=== PATIENT | female | born 1985 | race Caucasian/White ===

== ENCOUNTER 2016-10-13 08:44 | Emergency (ER) | payer MEDICARE, OTHER ==
[2016-10-13] MEDS ORDERED: NORMAL SALINE 1,000 ML IV ONE (08:58)
[2016-10-13] MEDS ORDERED: PROMETHAZINE HCL 25 MG in DEXTROSE 5 % IN WATER 50 ML IV ONE ×2 (08:58)
[2016-10-13] MEDS ORDERED: DICYCLOMINE HCL 10 MG/ML AMPUL IM ONE ×2 (08:58→09:06)
--- NOTE | 2016-10-13 09:03 | ERNOTE ---
Medical Problem HPI - Narrative Date of Service: 10/13/16 - General Chief Complaint: Nausea/Vomiting Time Seen by Provider: 10/13/16 08:55 Source: patient Exam Limitations: no limitations - Immun/Allergies/Home Medications Immunizations: IMMUNIZATION HX Immunizations Up to Date No History of Influenza Vaccine No Hx Pneumococcal Vaccination No Allergies/Adverse Reactions: Allergies Penicillins Allergy (Verified 10/13/16 08:52) morphine Adverse Reaction (Verified 10/13/16 08:52) Home Medications: HOME MEDICATIONS Dicyclomine HCl [Bentyl] 10 mg PO TID PRN #10 capsule 10/13/16 [Last Taken Unknown] Mirtazapine [Mirtazapine (Remeron)] 15 mg PO DAILY 10/13/16 [Last Taken Unknown] Promethazine HCl [Phenergan] 25 mg PO TID PRN #12 tablet 10/13/16 [Last Taken Unknown] - History of Present History Narrative: Patient presents to the ED for vomiting and diarrhea. She relates she felt nauseated last night. Today vomiting, she relates large amounts, no blood. Abdominal cramping starting after vomiting, upper abdomen and now 2 episodes of watery non-bloody diarrhea. No fever. Son sick at home. No CP or SOB. Nothing makes this better or worse. No recent ABx. No bad food exposures she knows of. Timing: constant Severity: moderate Modifying Factors - (Improves): Present: other - nothing Modifying Factors - (Worsens): Present: other - nothign Review of Systems - Review of Systems Constitutional: Absent: fever EYE: Present: no symptoms reported ENT: Present: no symptoms reported Respiratory: Absent: shortness of breath Cardiology: Absent: chest pain Gastrointestinal/Abdominal: Present: See HPI Genitourinary: Absent: dysuria Musculoskeletal: Present: no symptoms reported Skin: Absent: rash Neurological: Absent: weakness - Patient's Past Medical History Patient History - Medical: No pertinent hx Patient History - Cardiac/Respiratory: No pertinent hx Patient History - Cancer: No Hx of Cancer Patient History - Surgical Procedures: Cholecystectomy - Social History Living Situations: home - Immunizations Immunizations Up to Date: No Hx Pneumococcal Vaccination: No History of Influenza Vaccine: No Physical Exam - Physical Exam General Appearance: Present: alert, no apparent distress Eye Exam: Normal inspection: bilateral, PERRL: bilateral Ears, Nose, Throat: Present: normal ENT inspection Neck: Present: normal inspection Respiratory: Present: no respiratory distress, no accessory muscle use, lungs clear Cardiovascular/Chest: Present: regular rate, rhythm Gastrointestinal/Abdominal: Present: normal bowel sounds, nondistended, soft, other - mild epigastric tenderness to deep palpation. No guarding or rebound. No peritoneal signs. Back Exam: Absent: CVA tenderness (R), CVA tenderness (L) Extremity Exam: Present: normal inspection Neurological Exam: Present: alert, normal mood/affect, no motor/sensory deficits. Absent: motor weakness Skin Exam: Absent: skin rash ED Progress - Results and Orders Patient's Lab Results:: I have reviewed the patient's lab results. - Vital Signs Patient's Vital Signs:: I have reviewed the patient's vital signs. Vital Signs: Vital Signs 10/13/16 10/13/16 08:45 08:48 Temperature 36.1 C L Pulse Rate 94 Respiratory 12 Rate Blood Pressure 110/66 95/63 O2 Sat by Pulse 99 Oximetry - Progress/Reassessment Chief Complaint: Nausea/Vomiting Progress Note-Subjective: 10/13/16 11:55 No further vomiting. Labs reviewed. She has only very mild upper abdominal tendenress. I do not feel imaging indicated. She feels like going home. Clinically gastroenteritis. I discussed warning signs and reasons to return as well as the need for close f/u. Departure - Departure Clinical Impression: Vomiting, Diarrhea, Abdominal cramping Disposition: Home self-care Condition: Stable Instructions: Rehydration, Adult Additional Instructions: Rest. Fluids. Follow-up with your doctor in 3 days for a re-check. Return for fever, vomiting, increased pain or if your condition worsens or changes in any way. Prescriptions: Dicyclomine HCl [Bentyl] 10 mg PO TID PRN #10 capsule PRN Reason: Pain Promethazine HCl [Phenergan] 25 mg PO TID PRN #12 tablet PRN Reason: Vomiting
--- OUTSIDE RECORDS SUMMARY | 2016-10-13 09:08 | XMS REPORT | Summary of Care ---
:1985 Author Organization [facility] Address [address] [place] [id number] Care Team Providers Name Role Phone Meghann Fink Primary Care Physician Encounter Date(s): 02/08/16 - 02/10/[address] [id number] Final: Anemia of the puerperium Final: Alkalosis Final: Acute posthemorrhagic anemia Final: Urinary tract infection following delivery, unspecified Final: Other complications of the puerperium, not elsewhere classified Final: Other chest pain Discharge Diagnosis: Symptomatic anemia Discharge Disposition: 01 Discharged to Home or Self Care Attending Physician: Amarjit Rubin MD Admitting Physician: Amarjit Rubin MD Vital Signs Most recent to oldest 1 2 3 [Reference Range]: Temperature Temporal Artery 37.2 DegC 37.2 DegC 36.9 DegC [36-38 DegC] (02/10/16 11:43 AM) (02/10/16 7:38 AM) (02/10/16 3:45 AM) Heart Rate Monitored [60-100 96 bpm 74 bpm 72 bpm bpm] (02/10/16 11:43 AM) (02/10/16 8:15 AM) (02/10/16 7:38 AM) Respiratory Rate [12-20 20 br/min 18 br/min 16 br/min br/min] (02/10/16 11:43 AM) (02/10/16 8:15 AM) (02/10/16 7:38 AM) SpO2 100 % 94 % 99 % (02/10/16 11:43 AM) (02/10/16 7:38 AM) (02/10/16 3:45 AM) SpO2 Location Left hand Left hand Right hand (02/10/16 11:43 AM) (02/10/16 7:38 AM) (02/10/16 3:45 AM) Systolic Blood Pressure 103 115 112 [100-120] (02/09/16 12:30 AM) (02/08/16 11:41 PM) (02/08/16 10:30 PM) Diastolic Blood Pressure 64 70 68 [60-80] (02/09/16 12:30 AM) (02/08/16 11:41 PM) (02/08/16 10:30 PM) Blood Pressure [90-130/60-90 105/78mmHg 112/78mmHg 122/70mmHg mmHg] (02/10/16 11:43 AM) (02/10/16 7:38 AM) (02/10/16 3:45 AM) Mean Arterial Pressure Monitor 74 mmHg 82 mmHg 84 mmHg Measure (02/09/16 1:00 PM) (02/09/16 12:00 PM) (02/09/16 11:49 AM) Blood Pressure Location Left arm Left arm Right arm (02/10/16 11:43 AM) (02/10/16 7:38 AM) (02/10/16 3:45 AM) Most recent to oldest [Reference 1 2 3 Range]: Height/Length Measured 158 cm (02/08/16 6:31 PM) Weight Dosing 77.3 kg 77.50 kg1 (02/08/16 6:31 PM) (02/08/16 2:04 PM) Weight Measured 69.2 kg 72.7 kg 77.3 kg (02/10/16 7:46 AM) (02/09/16 4:10 AM) (02/08/16 6:31 PM) BSA Measured 1.79 m2 (02/08/16 6:31 PM) Body Mass Index Measured 27.72 kg/m2 29.12 kg/m2 30.96 kg/m2 (02/10/16 7:46 AM) (02/09/16 4:11 AM) (02/08/16 6:31 PM) 1Result Comment: This result was because the dosing weight was either not entered or it is>30 days old. This result is based off: Weight Measured February 08, 2016 14:00:00 CDT by Iram Llanos Problem List Condition Effective Dates Status Health Status Informant Symptomatic anemia(Confirmed) Active Asthma(Confirmed) Active (Confirmed) 05/03/15 - 02/01/16 Resolved (Confirmed) 12/28/08 - 09/13/09 Resolved (Confirmed) 06/20/10 - 03/13/11 Resolved (Confirmed) 10/11/13 - 07/22/14 Resolved Allergies, Adverse Reactions, Alerts Substance Reaction Severity Status morphine1 back spasms Active penicillin upset stomache Active 1pt reports it gave her back spasms but she is not allergic. Medications ciprofloxacin 250 mg oral tablet 1 tab(s), Oral, BID, # 6 tab(s), 0 Refill(s), Start Date: 02/10/16 13:22:00 CDT Start Date: 02/10/16 Stop Date: 02/14/16 Status: DiscontinuedColace 100 mg oral capsule 1 cap(s), Oral, Daily, PRN for constipation, Start Date: 02/08/16 14:54:00 CDT Start Date: 02/08/16 Status: Orderedferrous gluconate 324 mg (38 mg elemental iron) oral tablet 1 tab(s), Oral, BID, # 60 tab(s), 0 Refill(s), Start Date: 02/10/16 13:22:00 CDT Start Date: 02/10/16 Status: Orderedibuprofen 800 mg oral tablet TK 1 T PO Q 8 H PRN P Special Instructions: TK 1 T PO Q 8 H PRN P Start Date: 02/08/16 Stop Date: 02/10/16 Status: DiscontinuedMiraLax oral powder for reconstitution 17 gm=, Oral, Daily, dissolve in water before taking, # 255 gm, 1 Refill(s), Start Date: 02/14/16 11:05:00 CDT, [facility]: [facility] [place] [id number] Special Instructions: dissolve in water before taking Start Date: 02/14/16 Stop Date: 03/05/16 Status: OrderedoxyCODONE-acetaminophen 5 mg-325 mg oral tablet TK 1 T PO Q 4 H PRN P. DO NOT EXCEED 4000MG OF ACETAMINOPHEN PER 24 HOURS Special Instructions: TK 1 T PO Q 4 H PRN P. 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 Start Date: 08/07/14 Stop Date: 08/10/14 Status: Completed Results Patient Viewable Results Most recent to oldest [Reference 1 2 3 Range]: Patient Temp 37.0 DegC *NA* (02/09/16 10:59 AM) pH Art [7.35-7.45] 7.51 *HI* (02/09/16 10:59 AM) pCO2 Art [35-45 mmHg] 41 mmHg (02/09/16 10:59 AM) pO2 Art [75-90 mmHg] 72 mmHg1 *LOW* (02/09/16 10:59 AM) Totl CO2 Art [23-30 mmol/L] 34 mmol/L *HI* (02/09/16 10:59 AM) HCO3 Art [21-28 mEq/L] 32 mEq/L *HI* (02/09/16 10:59 AM) Base Excess Art 8.8 mmol/L *NA* (02/09/16 10:59 AM) O2 % Sat Art (m) [95-98 %] 97 % (02/09/16 10:59 AM) WBC [4.8-10.8 thou/mm3] 7.4 thou/mm3 6.9 thou/mm3 6.2 thou/mm3 (02/10/16 5:17 AM) (02/09/16 4:04 AM) (02/08/16 2:32 PM) RBC [4.20-5.40 Mil/mm3] 3.26 Mil/mm3 3.15 Mil/mm3 3.17 Mil/mm3 *LOW* *LOW* *LOW* (02/10/16 5:17 AM) (02/09/16 9:57 PM) (02/09/16 3:53 PM) Hgb [12.0-16.0 g/dL] 9.0 g/dL 8.5 g/dL 8.8 g/dL *LOW* *LOW* *LOW* (02/10/16 5:17 AM) (02/09/16 9:57 PM) (02/09/16 3:53 PM) Hct [37.0-47.0 %] 27.8 % 26.9 % 26.9 % *LOW* *LOW* *LOW* (02/10/16 5:17 AM) (02/09/16 9:57 PM) (02/09/16 3:53 PM) MCV [80.0-94.0 fL] 85.3 fL 85.4 fL 84.9 fL (02/10/16 5:17 AM) (02/09/16 9:57 PM) (02/09/16 3:53 PM) MCH [25.0-38.0 pg/cell] 27.6 pg/cell 27.0 pg/cell 27.8 pg/cell (02/10/16 5:17 AM) (02/09/16 9:57 PM) (02/09/16 3:53 PM) MCHC [31.0-37.0 g/dL] 32.4 g/dL 31.6 g/dL 32.7 g/dL (02/10/16 5:17 AM) (02/09/16 9:57 PM) (02/09/16 3:53 PM) RDW [1.0-48.0 fL] 48.4 fL 49.2 fL 48.8 fL *HI* *HI* *HI* (02/10/16 5:17 AM) (02/09/16 9:57 PM) (02/09/16 3:53 PM) Platelet [130-400 thou/mm3] 298 thou/mm3 234 thou/mm3 231 thou/mm3 (02/10/16 5:17 AM) (02/09/16 4:04 AM) (02/08/16 2:32 PM) Platelet Morphology [Normal] Normal (02/08/16 2:32 PM) Platelet Estimate [Normal] Normal (02/08/16 2:32 PM) Neutrophils % Auto [50.0-75.0 %] 59.2 % (02/09/16 4:04 AM) Immature Granulocyte Auto 5.9 % [0.1-2.0 %] *HI* (02/09/16 4:04 AM) Lymphocytes % Auto [15.0-41.0 %] 24.5 % (02/09/16 4:04 AM) Monocytes % Auto [2.0-10.0 %] 8.4 % (02/09/16 4:04 AM) Eosinophils % Auto [0.0-6.0 %] 1.6 % (02/09/16 4:04 AM) Basophil % Auto [0.0-1.0 %] 0.4 % (02/09/16 4:04 AM) Neutrophils Absolute [1.5-5.9 4.1 thou/mm3 thou/mm3] (02/09/16 4:04 AM) Immature Gran Absolute [0.01-0.03 0.41 thou/mm3 thou/mm3] *HI* (02/09/16 4:04 AM) Lymphocytes Absolute [1.5-4.0 1.7 thou/mm3 thou/mm3] (02/09/16 4:04 AM) Monocytes Absolute [0.0-0.9 0.6 thou/mm3 thou/mm3] (02/09/16 4:04 AM) Eosinophil Absolute [0.0-0.7 0.1 thou/mm3 thou/mm3] (02/09/16 4:04 AM) Basophil Absolute [0.0-0.2 0.0 thou/mm3 thou/mm3] (02/09/16 4:04 AM) Neutrophils (Manual) [50-75 %] 77 % *HI* (02/08/16 2:32 PM) Band (Manual) [0-10 %] 2 % (02/08/16 2:32 PM) Lymphocytes (Manual) [15-41 %] 14 % *LOW* (02/08/16 2:32 PM) Atypical Lymphocyte [0-7 %] 1 % (02/08/16 2:32 PM) Monocytes (Manual) [0-10 %] 1 % (02/08/16 2:32 PM) Eosinophil (Manual) [0-6 %] 1 % (02/08/16 2:32 PM) Basophil (Manual) [0-1 %] 1 % (02/08/16 2:32 PM) Metamyeloctyes [0-0 %] 3 % *HI* (02/08/16 2:32 PM) WBC Morphology [Normal] Normal (02/08/16 2:32 PM) RBC Morphology [Normal] Abnormal *ABN* (02/08/16 2:32 PM) Anisocytosis 1+ *ABN* (02/08/16 2:32 PM) Polychromasia 2+ *ABN* (02/08/16 2:32 PM) Hypochromasia 1+ *ABN* (02/08/16 2:32 PM) Absolute Neutrophil Count 4.9 thou/mm3 [1.5-5.9 thou/mm3] (02/08/16 2:32 PM) Sed Rate [0-20 mm/hr] 81 mm/hr *HI* (02/09/16 4:04 AM) Adjusted Reticulocyte [0.5-1.5 %] 2.0 % *HI* (02/08/16 6:07 PM) INR [0.9-1.1 INR] 1.0 INR (02/08/16 2:32 PM) PTT [22.7-35.2 seconds] 34.8 seconds (02/08/16 2:32 PM) D-Dimer [0.00-0.49 mcgFEU/mL] 4.07 mcgFEU/mL2 *HI* (02/08/16 2:32 PM) Sodium Lvl [135-144 mEq/L] 140 mEq/L 143 mEq/L 142 mEq/L (02/10/16 5:17 AM) (02/09/16 4:04 AM) (02/08/16 2:32 PM) Potassium Lvl [3.3-4.8 mEq/L] 4.4 mEq/L 3.7 mEq/L 4.2 mEq/L (02/10/16 5:17 AM) (02/09/16 4:04 AM) (02/08/16 2:32 PM) Chloride Lvl [98-107 mEq/L] 101 mEq/L 103 mEq/L 106 mEq/L (02/10/16 5:17 AM) (02/09/16 4:04 AM) (02/08/16 2:32 PM) Bicarbonate Lvl [22-30 mmol/L] 27 mmol/L 30 mmol/L 25 mmol/L (02/10/16:17 AM) (02/09/16 4:04 AM) (02/08/16 2:32 PM) Anion Gap [10.0-20.0] 16.4 13.7 15.2 (02/10/16 5:17 AM) (02/09/16 4:04 AM) (02/08/16 2:32 PM) Glucose Lvl [70-108 mg/dL] 76 mg/dL 79 mg/dL 94 mg/dL (02/10/16 5:17 AM) (02/09/16 4:04 AM) (02/08/16 2:32 PM) BUN [7-21 mg/dL] 11 mg/dL 15 mg/dL 19 mg/dL (02/10/16:17 AM) (02/09/16 4:04 AM) (02/08/16 2:32 PM) Creatinine Lvl [0.50-1.20 mg/dL] 0.68 mg/dL 0.63 mg/dL 0.68 mg/dL (02/10/16 5:17 AM) (02/09/16 4:04 AM) (02/08/16 2:32 PM) BUN/Creat Ratio 16.2 23.8 27.9 *NA* *NA* *NA* (02/10/16:17 AM) (02/09/16 4:04 AM) (02/08/16 2:32 PM) eGFR AA [>=60] >60 >60 >60 (02/10/16:17 AM) (02/09/16 4:04 AM) (02/08/16 2:32 PM) eGFR ARIELLA [>=60] >60 >60 >60 (02/10/16:17 AM) (02/09/16 4:04 AM) (02/08/16 2:32 PM) Calcium Lvl [8.6-10.2 mg/dL] 8.3 mg/dL 8.1 mg/dL 8.1 mg/dL *LOW* *LOW* *LOW* (02/10/16 5:17 AM) (02/09/16 4:04 AM) (02/08/16 2:32 PM) Total Protein [6.4-8.3 g/dL] 5.3 g/dL *LOW* (02/08/16 2:32 PM) Albumin Lvl [3.5-5.2 g/dL] 2.5 g/dL *LOW* (02/08/16 2:32 PM) Globulin 2.8 *NA* (02/08/16 2:32 PM) A/G Ratio [0.9-1.8] 0.9 (02/08/16 2:32 PM) Bilirubin Total [0.1-1.0 mg/dL] 0.1 mg/dL (02/08/16 2:32 PM) Alkaline Phosphatase [39-129 123 unit/L unit/L] (02/08/16 2:32 PM) AST [0-39 unit/L] 12 unit/L (02/08/16 2:32 PM) ALT [0-40 unit/L] 17 unit/L (02/08/16 2:32 PM) LDH [94-250 unit/L] 231 unit/L (02/08/16 2:32 PM) FE [50-170 mcg/dL] 33 mcg/dL *LOW* (02/08/16 2:32 PM) Iron Binding Capacity, Total 305 mcg/dL [228-428 mcg/dL] (02/08/16 2:32 PM) % Iron Saturation [20-50 %] 11 % *LOW* (02/08/16 2:32 PM) B-type Natriuretic Peptide [0-99 394 pg/mL pg/mL] *HI* (02/08/16 2:32 PM) Troponin-I [0.00-0.04 ng/mL] <0.01 ng/mL <0.01 ng/mL <0.01 ng/mL (02/09/16 9:57 PM) (02/09/16 3:53 PM) (02/09/16 9:51 AM) Ferritin Lvl [10-291 ng/mL] 41 ng/mL (02/08/16 6:07 PM) Estimated Creatinine Clearance 115.93 mL/min 125.13 mL/min 115.93 mL/min (02/10/16 6:03 AM) (02/09/16 4:31 AM) (02/08/16 6:43 PM) UA Color LT YELLOW *NA* (02/08/16 7:41 PM) Urine Clarity [Clear] Clear (02/08/16 7:41 PM) Specific [place] [1.001-1.020] 1.043 *HI* (02/08/16 7:41 PM) Urine pH [5.0-7.0] 6.0 (02/08/16 7:41 PM) Ketones [Negative] Negative (02/08/16 7:41 PM) Bilirubin [Negative] Negative (02/08/16 7:41 PM) Urine Protein [Negative] Trace *ABN* (02/08/16 7:41 PM) Glucose [Negative] Negative (02/08/16 7:41 PM) Urine HGB [Negative] Trace *ABN* (02/08/16 7:41 PM) Urobilinogen [< 2.0 mg/dL] <2.0 *NA* (02/08/16 7:41 PM) Nitrite [Negative] Positive *ABN* (02/08/16 7:41 PM) Leuk Esterase [Negative] 3+ *ABN* (02/08/16 7:41 PM) Urine WBC [0-5] >50 *ABN* (02/08/16 7:41 PM) Urine RBC [0-2] 3-10 *ABN* (02/08/16 7:41 PM) Squamous Epi [0-5] None Seen (02/08/16 7:41 PM) Bacteria [None Seen] 4+ *ABN* (02/08/16 7:41 PM) Mucus [None Seen] Trace *NA* (02/08/16 7:41 PM) ABO/Rh A POS *Unknown* (02/08/16 6:07 PM) Antibody Screen Negative ABSC (02/08/16 6:07 PM) 1Result Comment: patient on room [id number] Comment: Abnormal D-Dimer test results (> 0.49 ug FEU/mL) preclude ruling-out deep venous thrombosis/pulmonary embolism.Microbiology Reports TEST:MRSA Screen STATUS:Auth (Verified) BODY SITE: SOURCE:Nares COLLECTED DATE/TIME:02/08/16 8:17 PMFINAL REPORTNegative for MRSA by PCRTEST :Urine Culture STATUS:Auth (Verified) BODY SITE: SOURCE:Urine COLLECTED DATE/TIME:02/08/16 5:26 PMFINAL REPORT>100,000 cfu/ml Escherichia coli ORGANISM:Escherichia coli Immunizations No data available for this section Procedures Procedure Date Related Diagnosis Body Site Bilateral tubal ligation 02/01/16 section 02/01/16 Laparoscopic cholecystectomy 04/02/11 Tooth extraction, multiple Social History No data available for this section Assessment and Plan No data available for this section
--- OUTSIDE RECORDS SUMMARY | 2016-10-13 09:08 | XMS REPORT | Continuity of Care Document ---
:1985 Author Organization [facility] ([facility]) Address [address] [place] [address] Phone [phone] Care Team Providers Name Role Phone Shutters, Jodie Davis Primary Care Provider [phone] Source Comments This disclosure is being made pursuant to the Care Everywhere program, applicable federal and state laws, and may not contain all informaitonavailable regarding this patient.[facility] ([facility]) Active Allergies and Adverse Reactions Allergen Noted Date Severity Reactions Comments Morphine 04/09/2013 Rash Penicillins 02/24/2009 Stomach Pain Upset stomach Current Medications Prescription Sig. Disp. Refills Start Date End Date Status ranitidine 150 mg Take 1 tablet 60 tablet 11 01/24/2016 Active tablet (150 mg total) by mouth 2 times daily. docusate (COLACE) 100 Take 1 capsule 60 capsule 3 02/04/2016 Active mg capsule (100 mg total) by mouth 2 times daily. ibuprofen 800 mg Take 1 tablet 90 tablet 3 02/04/2016 Active tablet (800 mg total) by mouth every 8 hours as needed for Pain. FERROUS FUMARATE (IRON Active PO) mirtazapine 15 mg Take 1 tablet (15 30 tablet 2 08/07/2016 Active tablet mg total) by mouth at bedtime. Active Problems Problem Noted Date Acute posthemorrhagic anemia 02/03/2016 Transfusion of packed red blood cells 02/03/2016 Poor social situation 01/25/2016 Overview: FABIO works nights and has fallen asleep twice while driving her to OB appointments (they live in [place]). At 37 weeks her transmission went out of her care. At 38 weeks they lost their home and started living in a tent in her [id number] back yard. During visits patient yells frequently at her children. FODomonique gets laid off from work every year and is getting close to the time to getting laid off. Needs to see health care social worker prior to d/c home. Indication for care or intervention related to labor and delivery 01/10/2016 Vaginal yeast infection 01/10/2016 Glucose intolerance (impaired glucose tolerance) 11/30/2015 Overview: Elevated 1 hour, 3 hr GTT NML Musculoskeletal pain 11/16/2015 Overview: Low back, hips, upper legs. Rx given for flexeril. Referral placed to PT 2015. Supervision of normal 07/01/2015 Overview: dated by 7 wk ultrasound Overweight 07/01/2015 Overview: BMI=29 at NOB Insomnia 06/16/2014 Psychiatric illness 03/06/2013 Overview: Phenomenological History: (onset and course of illness include symptoms description and hospitalizations; For substance use disorders include age of 1st use, last use, amount and frequency, syndrome of dependence, withdrawal symptoms, treatment, periods of sobriety) Patient has never seen a psychiatrist. No history of psychiatric admissions. She has a history of ADHD and mild MR. Treatment history: Celexa about 1 year for depression: caused issues with insomnia Amitriptyline: helpful for headaches, depression, sleep. (stopped when found out she was ) History of suicide attempts: None History of self-harm behavior: None History of violence: None Major depressive disorder, recurrent episode, mild 12/12/2012 Overview: Last seen in [facility] in 04/2015. Was taking nortriptyline and melatonin prior to Last Assessment & Plan: GERD (gastroesophageal reflux disease) 11/30/2011 Overview: Given Rx for ranitidine Asthma 11/30/2011 Attention Deficit Disorder with Hyperactivity- no meds 05/21/2002 Mild intellectual disabilities 05/21/2002 Resolved Problems Problem Noted Date Resolved Date Supervision of normal in third trimester 11/16/2015 11/30/2015 Mirena IUD placed 12/25/2013 02/03/2014 07/01/2015 Overview: Problem visit for dyspareunia and pelvic pain 09/01/14. Strings checked, treated for BV, Mirena left in place. Contraceptive management 09/01/2013 02/03/2014 Overview: Using Depo for control. C/o breakthrough bleeding and prescribed Loestrin pills for management. 09/25: Continues to have bleeding. See phone note. Offered SAS DEVELOPER ANALYST u/s with appt to discuss contraceptive plans. 10/05: SAS DEVELOPER ANALYST ultrasound and HCG rules out retained POC, though suggestive of adenomyosis. Pt will continue on Depo. Anemia, antepartum(648.23) 04/16/2013 07/01/2015 Overview: 04/16/2013 HCT: 29. Fe recommended 05/18 Supervision of normal 12/12/2012 08/31/2013 Abdominal pain complicating 12/10/2012 09/01/2013 Overview: IUP c/w 8 6/7 weeks noted on ultrasound 12/10/12. R/O UTI. Constipation. Most Recent Encounters Date Type Specialty Providers Description 09/19/2016 Telephone Psychiatry Gabriella Ritchie MD 08/09/2016 Telephone Gynecology Abbey Holly MD Chief Comp: Vaginal Bleeding 08/07/2016 Office Visit Women's Health Clayton Hermosillo MD Dx: Major depressive Gabriella Ritchie MD disorder, recurrent episode, mild (Primary Dx) Immunizations Name Dates Previously Given Next Due DTP 11/29/1995,02/17/1985 Hepatitis B, unspecified 12/01/1996,06/30/1996,04/28/1996 Influenza 06/10/2009 Influenza, PF 06/23/2012,08/07/2010 Influenza, quadrivalent PF 06/21/2016,06/24/2015,06/11/2013 MMR 02/04/2016,07/24/2013,09/15/2009,04/28/1996,12/03 Novel Influenza H1N1 07/08/2009 Polio, unspecified 08/21/1996,04/28/1996,11/29/1995 Td, adult unspecified 08/21/1996 Tdap 11/18/2015,07/03/2013,11/30/2011 Varicella 04/01/1998 Social History Tobacco Use Types Packs/Day Years Used Date Never Smoker Smokeless Tobacco: Never Used Tobacco Cessation:Counseling Given: Yes Comments: Alcohol Use Drinks/Week oz/Week Comments Yes occasionally none since 2 months Last Filed Vital Signs Vital Sign Reading Time Taken Blood Pressure 99/66 06/21/2016 10:52 AM CDT Pulse 86 06/21/2016 10:52 AM CDT Temperature 36.5 C (97.7 F) 06/21/2016 10:52 AM CDT Respiratory Rate 16 02/04/2016 8:30 AM CDT Height 1.57 m (5' 1.81") 09/15/2015 3:52 PM RETURNS PROCESSOR Weight 67 kg (147 lb 11.3 oz) 06/21/2016 10:52 AM CDT Body Mass Index 27.18 06/21/2016 10:52 AM CDT Oxygen Saturation 98% 02/04/2016 8:30 AM CDT Plan of Care Patient Goal Type Goal Lifestyle Attending meditation / other stress management classes Health Maintenance Due Date Last Done Comments Pneumococcal Vaccine (1 2003 - [id number]) Physical Therapy Plan of 03/01/2016 12/02/2015 Care Lipid Disorder Screening 11/29/2016 11/30/2011 Cervical Cancer Screening 03/14/2021 03/14/2016, Additional history exists 12/10/2012, 04/24/2011 Td Vaccine 11/17/2025 11/18/2015, Additional history exists 07/03/2013, 11/30/2011 Hepatitis B Vaccine Completed 12/01/1996, 06/30/1996, 04/28/1996 Tdap Vaccine Completed 11/18/2015, 07/03/2013, 11/30/2011 MMR Vaccine Completed 02/04/2016, Additional history exists 07/24/2013, 09/15/2009 Influenza Vaccine: Seasonal Completed 06/21/2016, Additional history exists 06/24/2015, 06/11/2013 Results from Last 3 Months Not on file
--- OUTSIDE RECORDS SUMMARY | 2016-10-13 09:08 | XMS REPORT | CCD ---
:1985 Author Name VALORIE BENTON Gee Address [address] [facility] Unavailable [place], [place] [id number] Care Team Providers Name Role Phone SHELBY KEENAN Attending Physician Unavailable SHELBY KEENAN Er Physician 1 Unavailable SENDY Davis Registered Nurse Unavailable Vital Signs Vital Sign Value Unit Height 62 in Weight Measured 140 lbs BMI (Body Mass Index) 25.61 kg/m^2 BSA (Body Surface Area) 1.67 m^2 Allergies Allergy Code Allergy Type Reaction Status MORPHINE 0 Drug allergy (disorder) Active PCN (penicillin) 0 Drug allergy (disorder) Active Procedures Unknown. History of Immunizations Unknown. Problems Unknown. Results Unknown. Medications Unknown. Medications Administered Unknown. Encounters Encounter Diagnosis Diagnosis Code Start Date SPRAIN OF ANKLE NOS 19986 07/30/2013 Social History Smoking Status Code Start Date End Date Never smoker [id number] Patient Decision Aids Unknown. Instructions You were admitted to [facility] on 07/30/2013 with a principle diagnosis of SPRAIN OF ANKLE NOS. You were discharged from [facility] on 07/30/2013. Should you have any questions prior to discharge, please contact a member of your healthcare team. If you have left the hospital and have any questions, please contact your primary care physician. Chief Complaint and Reason For Visit Unknown. Function Status Unknown. Plan of Care Unknown. Referral/Transition of Care Unknown.
[2016-10-13 09:10] LABS: Hematocrit 38.7 % (37.0-47.0); Hemoglobin 12.9 gm/dL (12.5-16.0); Mean Cell Volume 81.1 fl (78-100); Mean Corpuscular Hgb Conc 33.3 g/dl (32-36); Mean Platelet Volume 9.1 fl (6.0-9.5); Neutrophil # 7.7 K/mm3 (1.3-6.0); Neutrophil % 78.9 % (42-75.0); Platelet Count 278 K/mm3 (150-450); Red Blood Count 4.77 M/mm3 (4.2-5.4); Red Cell Distribution Width 12.9 % (11.5-14.0); White Blood Count 9.7 K/mm3 (4.0-10.5)
[2016-10-13 09:26] LABS: Albumin * 3.8 gm/dl (3.4-5.0); BUN/Creatinine Ratio 19.3 (9.0-21.6); Carbon Dioxide 28.3 mmol/L (24-32.6); Potassium 4.3 mmol/L (3.4-4.6); Total Protein 7.5 gm/dL (6.2-8.2)
[2016-10-13 09:27] LABS: Bilirubin, Total 0.4 mg/dL (0.0-1.1); Ca. Corrected For Albumin 8.8 mg/dL (8.4-10.2)
[2016-10-13 10:38] LABS: Urine Bilirubin Negative (NEGATIVE); Urine Ketone Negative (NEGATIVE); Urine Nitrite Negative (NEGATIVE); Urine Protein Negative (NEGATIVE); Urine Urobilinogen Normal (NORMAL)
[2016-10-13 10:46] LABS: Urine Appearance Clear; Urine Bacteria TRACE; Urine Blood 10 /ul (NEGATIVE); Urine Color Yellow; Urine RBC 0-5 /hpf (0-5); Urine WBC None Seen /hpf (0-5)
[2016-10-13 12:07] VITALS: BP 118/68
== END 2016-10-13 12:05 | disposition home or self-care (01) ==
LOC: ER 08:44
DX: R11.10 Vomiting, unspecified (principal); R19.7 Diarrhea, unspecified; R10.9 Unspecified abdominal pain

== ENCOUNTER 2017-02-24 15:58 | Emergency (ER) | payer MEDICARE, OTHER ==
--- NOTE | 2017-02-24 16:20 | ERNOTE ---
Date of Service: 02/24/17 Time Seen by Provider: 02/24/17 16:11 Stated Complaint: COUGH Presenting Symptoms:: cough Source: patient Exam Limitations: no limitations Immunizations: IMMUNIZATION HX Immunizations Up to Date Yes History of Influenza Vaccine No Hx Pneumococcal Vaccination No Allergies/Adverse Reactions: Allergies morphine Adverse Reaction (Mild, Verified 02/24/17 16:08) back pain Penicillins Adverse Reaction (Mild, Verified 02/24/17 16:08) upset stomach Home Medications: HOME MEDICATIONS Mirtazapine [Mirtazapine (Remeron)] 15 mg PO DAILY 10/13/16 [Last Taken Unknown] Benzonatate [Tessalon Perle] 100 mg PO TID #30 capsule 02/24/17 [Last Taken Unknown] Loratadine [Claritin] 10 mg PO DAILY #30 tab 02/24/17 [Last Taken Unknown] - History of Present Ilness Narrative: Pt. comes in with c/o cough x 1.5 weeks. Pt. denies any fevers, SOB, CP, NVD, rhinorrhea, ear pain sore throat, aggravating factors, alleviating factors, or prehospital treatment. Review of Systems - Review of Systems Constitutional: Present: no symptoms reported. Absent: recent illness, fever, chills, weakness, fatigue, malaise EYE: Present: no symptoms reported ENT: Present: no symptoms reported Respiratory: Present: cough. Absent: shortness of breath, wheezing Cardiology: Present: no symptoms reported. Absent: chest pain, palpitations, edema Gastrointestinal/Abdominal: Present: no symptoms reported. Absent: nausea, vomiting, diarrhea Genitourinary: Present: no symptoms reported Musculoskeletal: Present: no symptoms reported. Absent: back pain, joint pain Skin: Present: no symptoms reported. Absent: rash, change in color Neurological: Present: no symptoms reported. Absent: headache, dizziness/light- headedness, numbness, tingling All Other Systems: All systems neg except as marked - Patient's Past Medical History Patient History - Medical: Depression, Headache Patient History - Cardiac/Respiratory: No pertinent hx Patient History - Cancer: No Hx of Cancer Patient History - Surgical Procedures: Cholecystectomy, Tubal Ligation Patient History - Other: None - Family History Mother Family History - Medical: No pertinent hx Family History - Cardiac/Respiratory: No pertinent hx Family History - Cancer: No pertinent family hx Father Family History - Medical: No pertinent hx Family History - Cardiac/Respiratory: No pertinent hx Family History - Cancer: No pertinent family hx Brother Family History - Medical: No pertinent hx Family History - Cardiac/Respiratory: No pertinent hx Family History - Cancer: No pertinent family hx - Social History Living Situations: spouse Abuse History: No History of abuse Psych History: Hx of Depression, Current tx/ever been on anti-depressants or anti-anxiety meds Smoking Status: Never smoker Have you smoked in the past 12 months: No Do you dip or chew tobacco: No Alcohol Use: none Drug Use: none - Immunizations Immunizations Up to Date: Yes Hx Pneumococcal Vaccination: No History of Influenza Vaccine: No Physical Exam - Physical Exam General Appearance: Present: wd/wn, alert, no apparent distress Eye Exam: Normal inspection: bilateral, PERRL: bilateral, EOMI: bilateral Ears, Nose, Throat: Present: nasal congestion - pale boggy nares, sinus pain/ drainage - PND clear, pharyngeal erythema - mild Neck: Present: normal inspection, nontender. Absent: lymphadenopathy (R), lymphadenopathy (L) Respiratory: Present: no respiratory distress, normal breath sounds, no accessory muscle use, chest nontender, lungs clear. Absent: crackles, rales, rhonchi, stridor, wheezing Cardiovascular/Chest: Present: regular rate, rhythm, no murmur, normal peripheral pulses Gastrointestinal/Abdominal: Present: normal bowel sounds, nontender, nondistended, soft, no organomegaly Back Exam: Present: normal inspection Extremity Exam: Present: normal inspection Neurological Exam: Present: alert, oriented, normal mood/affect, no motor/ sensory deficits Skin Exam: Present: normal color, warm/dry. Absent: pallor, skin rash ED Progress - Date and Time Seen: Date and Time: 02/24/17 16:18 feel that given allergic rhinitis symptoms feel that cough may be related will start on anthistimine and tessalon perrles for cough and have pt. follow up with PCP. - Vital Signs Patient's Vital Signs:: I have reviewed the patient's vital signs. Vital Signs: Vital Signs 02/24/17 16:01 Temperature 36.5 C Pulse Rate 99 Respiratory 18 Rate Blood Pressure 107/63 O2 Sat by Pulse 98 Oximetry - X-Ray X-Ray #1 X-Ray: chest Interpretation: Interp. by me X-ray Comments: bronchial cuffing no consolidation - Progress/Reassessment Chief Complaint: Cough Departure - Departure Clinical Impression: Allergic rhinitis Qualifiers: Chronicity: acute Allergic rhinitis trigger: other Allergic rhinitis seasonality: unspecified seasonality Qualified Code(s): J30.89 - Other allergic rhinitis Disposition: Home self-care Condition: Good Instructions: Acute Bronchitis, [id number], Allergic Rhinitis Additional Instructions: Please follow up with primary provider in 2-3 days please take medications as directed. Prescriptions: Benzonatate [Tessalon Perle] 100 mg PO TID #30 capsule Loratadine [Claritin] 10 mg PO DAILY #30 tab
[2017-02-24 16:52] VITALS: BP 110/66
== END 2017-02-24 16:49 | disposition home or self-care (01) ==
LOC: ER 15:58
DX: J30.89 Other allergic rhinitis (principal)

== ENCOUNTER 2017-09-03 01:30 | Emergency (ER) | payer MEDICARE, MEDICAID ==
[2017-09-03] MEDS ORDERED: ONDANSETRON HCL/PF 2 MG/ML VIAL IV ONE (02:01)
[2017-09-03] MEDS ORDERED: ONDANSETRON HCL/PF 2 MG/ML VIAL ONE (02:01)
--- NOTE | 2017-09-03 02:05 | ERNOTE ---
Medical Problem HPI - General Chief Complaint: Nausea/Vomiting Time Seen by Provider: 09/03/17 02:01 Source: patient Exam Limitations: no limitations - Immun/Allergies/Home Medications Immunizations: IMMUNIZATION HX Immunizations Up to Date Yes History of Influenza Vaccine No Hx Pneumococcal Vaccination No Allergies/Adverse Reactions: Allergies morphine Adverse Reaction (Mild, Verified 09/03/17 01:53) back pain Penicillins Adverse Reaction (Mild, Verified 09/03/17 01:53) upset stomach Home Medications: HOME MEDICATIONS Mirtazapine [Mirtazapine (Remeron)] 15 mg PO DAILY 10/13/16 [Last Taken Unknown] Ondansetron HCl [Zofran] 1 - 2 tab PO Q8H PRN #10 tab 09/03/17 [Last Taken Unknown] - History of Present History Narrative: pt had onset of nausea last evening approx 6 hours after eating at [employer] here in the [facility]. she has had n/v/d since then and unable to keep anything down. Timing: getting worse Severity: moderate Modifying Factors - (Worsens): Present: eating Review of Systems - Review of Systems Constitutional: Absent: fever EYE: Present: no symptoms reported ENT: Present: no symptoms reported Respiratory: Absent: shortness of breath Cardiology: Absent: chest pain Gastrointestinal/Abdominal: Present: See HPI Genitourinary: Present: decreased urinary output Musculoskeletal: Present: no symptoms reported Skin: Absent: rash Neurological: Present: no symptoms reported Endocrine: Present: no symptoms reported Hematologic/Lymphatic: Present: no symptoms reported Psych: Present: no symptoms reported - Patient's Past Medical History Patient History - Medical: Depression, Headache Patient History - Cardiac/Respiratory: No pertinent hx Patient History - Cancer: No Hx of Cancer Patient History - Surgical Procedures: Cholecystectomy, Tubal Ligation Patient History - Other: None - Family History Mother Family History - Medical: No pertinent hx Family History - Cardiac/Respiratory: No pertinent hx Family History - Cancer: No pertinent family hx Father Family History - Medical: No pertinent hx Family History - Cardiac/Respiratory: No pertinent hx Family History - Cancer: No pertinent family hx Brother Family History - Medical: No pertinent hx Family History - Cardiac/Respiratory: No pertinent hx Family History - Cancer: No pertinent family hx - Social History Living Situations: home Abuse History: No History of abuse Psych History: Hx of Depression, Current tx/ever been on anti-depressants or anti-anxiety meds Smoking Status: Never smoker Patient requests Smoking Cessation Consult: No Initiate information on Smoking Cessation: No Alcohol Use: none Drug Use: none - Immunizations Immunizations Up to Date: Yes Hx Pneumococcal Vaccination: No History of Influenza Vaccine: No Physical Exam - Physical Exam General Appearance: Present: wd/wn, alert, no apparent distress Head Exam: Present: normal inspection, no evidence of injury Neck: Present: normal inspection, nontender Respiratory: Present: no respiratory distress, no accessory muscle use Gastrointestinal/Abdominal: Present: normal bowel sounds, soft, tenderness - mild in the epigastrium. Absent: distended, guarding, rebound Neurological Exam: Present: alert, oriented, normal mood/affect, no motor/ sensory deficits Skin Exam: Present: normal color, warm/dry Lymphatic Exam: Present: no adenopathy ED Progress - Results and Orders Patient's Lab Results:: I have reviewed the patient's lab results. Results and Orders: Laboratory Tests 09/03/17 09/03/17 02:10 02:10 WBC 11.4 H Hgb 13.4 Hct 40.3 Plt Count 286 Neutrophils % 78.8 H Sodium 139 Potassium 3.6 Chloride 103 Carbon Dioxide 26.2 BUN 21 Creatinine 0.94 Random Glucose 97 Calcium 8.9 Total Bilirubin 0.4 AST 14 ALT 24 Alkaline Phosphatase 103 Total Protein 7.6 Albumin 4.1 Amylase 34 Lipase 120 - Vital Signs Patient's Vital Signs:: I have reviewed the patient's vital signs. Vital Signs: Vital Signs 09/03/17 01:49 Temperature 36.8 C Pulse Rate 96 Respiratory 18 Rate Blood Pressure 101/63 O2 Sat by Pulse 98 Oximetry - Progress/Reassessment Chief Complaint: Nausea/Vomiting Progress:: Improved Progress Note-Subjective: 09/03/17 03:27 Pt tolerated gatorade. Departure Clinical Impression: Gastroenteritis - Departure Disposition: Home self-care Condition: Good Instructions: Viral Gastroenteritis, Adult, [id number] Additional Instructions: Drink clear liquids( like gatorade or juice (half and half with water) for the next 24 hours then advance your diet as tolerated. Take medication as needed. Prescriptions: Ondansetron HCl [Zofran] 1 - 2 tab PO Q8H PRN #10 tab PRN Reason: Nausea
[2017-09-03 02:15] LABS: Hematocrit 40.3 % (37.0-47.0); Hemoglobin 13.4 gm/dL (12.5-16.0); Mean Cell Volume 80.9 fl (78-100); Mean Corpuscular Hemoglobin 26.9 pg (27-31); Mean Corpuscular Hgb Conc 33.3 g/dl (32-36); Mean Platelet Volume 9.1 fl (6.0-9.5); Neutrophil % 78.8 % (42-75.0); Platelet Count 286 K/mm3 (150-450); Red Blood Count 4.98 M/mm3 (4.2-5.4); Red Cell Distribution Width 13.1 % (11.5-14.0); White Blood Count 11.4 K/mm3 (4.0-10.5)
[2017-09-03 02:29] LABS: Albumin * 4.1 gm/dl (3.4-5.0); Anion Gap 13.4 mmol/L (6.8-13.8); BUN/Creatinine Ratio 22.3 (9.0-21.6); Bilirubin, Total 0.4 mg/dL (0.0-1.1); Ca. Corrected For Albumin 8.5 mg/dL (8.4-10.2); Calcium * 8.9 mg/dL (7.9-10.9); Carbon Dioxide 26.2 mmol/L (24-32.6); Potassium 3.6 mmol/L (3.4-4.6); Total Protein 7.6 gm/dL (6.2-8.2)
[2017-09-03] MEDS ORDERED: ONDANSETRON 4 MG TAB.RAPDIS PO ONE (03:36)
[2017-09-03] MEDS ORDERED: ONDANSETRON 4 MG TAB.RAPDIS ONE (03:40)
[2017-09-03 03:53] VITALS: BP 100/66
== END 2017-09-03 03:53 | disposition home or self-care (01) ==
LOC: ER 01:30
DX: K52.9 Noninfective gastroenteritis and colitis, unspecified
CPT/HCPCS: 36415; 74019; 80053; 82150; 83690; 85025; 96374; 99284; J2405

== ENCOUNTER 2017-11-02 11:55 | Emergency (ER) | payer MEDICARE, MEDICAID ==
[2017-11-02] MEDS ORDERED: METOCLOPRAMIDE HCL 5 MG/ML VIAL IV ONE (12:18)
[2017-11-02] MEDS ORDERED: NORMAL SALINE 1,000 ML IV ONE (12:18)
[2017-11-02] MEDS ORDERED: diphenhydrAMINE HCL 50 MG/ML VIAL IV ONE (12:18)
[2017-11-02] MEDS ORDERED: METOCLOPRAMIDE HCL 5 MG/ML VIAL ONE (12:18)
[2017-11-02] MEDS ORDERED: diphenhydrAMINE HCL 50 MG/ML VIAL ONE (12:18)
--- NOTE | 2017-11-02 12:21 | ERNOTE ---
Abdominal HPI - General Chief Complaint: Abdominal Pain Time Seen by Provider: 11/02/17 12:03 Source: patient Exam Limitations: no limitations - Immun/Allergies/Home Medications Immunizatons: IMMUNIZATION HX Immunizations Up to Date Yes History of Influenza Vaccine No Hx Pneumococcal Vaccination No Allergies/Adverse Reactions: Allergies morphine Adverse Reaction (Mild, Verified 11/02/17 12:01) back pain Penicillins Adverse Reaction (Mild, Verified 11/02/17 12:01) upset stomach Home Medications: HOME MEDICATIONS Dicyclomine HCl [Bentyl] 10 mg PO QID PRN #20 capsule 11/02/17 [Last Taken Unknown] - History of Present Illness Narrative: Patient presents with approximately 24 hours of cramping abdominal pain secondary to diarrhea. Patient rates the pain as at least moderate in severity and intermittent. Timing: intermittent Quality: moderate Activities at Onset: none Associated Symptoms: Present: other - diarrhea Review of Systems - Review of Systems Constitutional: Present: See HPI EYE: Present: no symptoms reported ENT: Present: no symptoms reported Respiratory: Present: no symptoms reported Cardiology: Present: no symptoms reported Gastrointestinal/Abdominal: Present: See HPI Genitourinary: Present: no symptoms reported Musculoskeletal: Present: no symptoms reported Skin: Present: no symptoms reported Neurological: Present: no symptoms reported Endocrine: Present: no symptoms reported Hematologic/Lymphatic: Present: no symptoms reported Psych: Present: no symptoms reported - Patient's Past Medical History Patient History - Medical: Depression, Headache Patient History - Cardiac/Respiratory: No pertinent hx Patient History - Cancer: No Hx of Cancer Patient History - Surgical Procedures: Cholecystectomy, Tubal Ligation, Other Patient History - Other: None LMP (females 10-50): 1 month - Family History Mother Family History - Medical: No pertinent hx Family History - Cardiac/Respiratory: No pertinent hx Family History - Cancer: No pertinent family hx Father Family History - Medical: No pertinent hx Family History - Cardiac/Respiratory: No pertinent hx Family History - Cancer: No pertinent family hx Brother Family History - Medical: No pertinent hx Family History - Cardiac/Respiratory: No pertinent hx Family History - Cancer: No pertinent family hx - Social History Living Situations: home Abuse History: No History of abuse Psych History: Hx of Depression, Current tx/ever been on anti-depressants or anti-anxiety meds Smoking Status: Never smoker Alcohol Use: none Drug Use: none - Immunizations Immunizations Up to Date: Yes Hx Pneumococcal Vaccination: No History of Influenza Vaccine: No Physical Exam - Physical Exam General Appearance: Present: wd/wn, alert, moderate distress Head Exam: Present: normal inspection, no evidence of injury Eye Exam: Normal inspection: bilateral, PERRL: bilateral Ears, Nose, Throat: Present: normal ENT inspection, H, normal pharynx Neck: Present: normal inspection, nontender Respiratory: Present: no respiratory distress, normal breath sounds, no accessory muscle use, chest nontender, lungs clear Cardiovascular/Chest: Present: regular rate, rhythm, no murmur, normal peripheral pulses Gastrointestinal/Abdominal: Present: normal bowel sounds, nondistended, soft, no organomegaly, tenderness - generalized Rectal Exam: Present: deferred Back Exam: Present: normal inspection, normal range of motion Extremity Exam: Present: normal inspection, non-tender, no edema, normal range of motion Neurological Exam: Present: alert, oriented, normal mood/affect Skin Exam: Present: normal color, warm/dry Lymphatic Exam: Present: no adenopathy ED Progress - Results and Orders Patient's Lab Results:: I have reviewed the patient's lab results. - Vital Signs Patient's Vital Signs:: I have reviewed the patient's vital signs. Vital Signs: Vital Signs 11/02/17 11:58 Temperature 36.4 C L Pulse Rate 82 Respiratory 15 Rate Blood Pressure 114/86 O2 Sat by Pulse 99 Oximetry - X-Ray X-Ray #1 X-Ray: abdomen Interpretation: Reviewed by me - Progress/Reassessment Chief Complaint: Abdominal Pain Progress:: Improved Plan - Plan Plan: I suspect the blood and urine is likely coming from the menstrual cycle she is currently on. Patient appears to have a gastroenteritis and will be started on Bentyl and she is to follow-up with her family doctors needed. Departure Clinical Impression: Gastroenteritis - Departure Disposition: Home self-care Condition: Good Instructions: Viral Gastroenteritis, Adult, [id number] Additional Instructions: Take 1 capful of Pepto-Bismol with every bout of diarrhea Prescriptions: Dicyclomine HCl [Bentyl] 10 mg PO QID PRN #20 capsule PRN Reason: Moderate Pain (Pain Scale 4-6)
[2017-11-02 12:33] LABS: Hematocrit 35.2 % (37.0-47.0); Hemoglobin 12.2 gm/dL (12.5-16.0); Mean Cell Volume 79.8 fl (78-100); Mean Corpuscular Hemoglobin 27.7 pg (27-31); Mean Corpuscular Hgb Conc 34.7 g/dl (32-36); Mean Platelet Volume 8.9 fl (6.0-9.5); Neutrophil # 3.5 K/mm3 (1.3-6.0); Neutrophil % 62.8 % (42-75.0); Platelet Count 220 K/mm3 (150-450); Red Blood Count 4.41 M/mm3 (4.2-5.4); Red Cell Distribution Width 13.1 % (11.5-14.0); White Blood Count 5.6 K/mm3 (4.0-10.5)
[2017-11-02 12:45] LABS: Albumin * 3.7 gm/dl (3.4-5.0); BUN/Creatinine Ratio 18.1 (9.0-21.6); Bilirubin, Total 0.6 mg/dL (0.0-1.1); Ca. Corrected For Albumin 8.3 mg/dL (8.4-10.2); Calcium * 8.4 mg/dL (7.9-10.9); Carbon Dioxide 23.6 mmol/L (24-32.6); Potassium 3.6 mmol/L (3.4-4.6); Total Protein 6.8 gm/dL (6.2-8.2)
[2017-11-02 12:58] LABS: Urine Bilirubin 1 mg/dl (NEGATIVE); Urine Blood 50 /ul (NEGATIVE); Urine Ketone 15 mg/dL (NEGATIVE); Urine Nitrite Negative (NEGATIVE); Urine Protein Negative (NEGATIVE); Urine Specific Gravity >=1.030 SP.GR. (1.005-1.010); Urine Urobilinogen Normal (NORMAL); Urine pH 5.5 pH (5.0-7.0)
[2017-11-02 13:06] LABS: Urine Color Yellow
[2017-11-02 13:07] VITALS: BP 108/60
[2017-11-02 13:07] LABS: Urine Appearance Clear; Urine Bacteria 1+; Urine RBC None Seen /hpf (0-5); Urine WBC 0-5 /hpf (0-5)
== END 2017-11-02 13:44 | disposition home or self-care (01) ==
LOC: ER 11:55
DX: K52.9 Noninfective gastroenteritis and colitis, unspecified (principal)